=== PATIENT | male | born 1940 | race American Indian/Alaskan Native ===

== ENCOUNTER 2018-02-09 17:52 | Emergency (ER) | payer SELFPAY ==
[2018-02-09] MEDS ORDERED: MAGNESIUM SULFATE 2GM/50ML 2 GM/50 ML BAG IV ONE (18:06)
--- NOTE | 2018-02-09 18:52 | Emergency Department Report ---
HPI - General Time Seen by Provider: 02/09/18 18:06 - HPI HPI: 78-year-old -[place] male presents to the emergency department via EMS from home as a call for a cardiac arrest. Originally they were called for possible stroke or a "sick call" but when EMS got there the patient was unresponsive, not breathing and found to be pulseless. They were unable to intubate the patient but started ACLS protocol including chest compressions and he received 2 rounds of epinephrine and one of sodium bicarbonate. EMS says that the patient was asystolic the entire time. The only history we know is that the patient has history of previous TIAs. Obviously the patient is a poor historian secondary to his acute medical condition. Patient's son later was in the hospital and says that he has a history of previous stroke, diabetes, hypertension. The patient became unresponsive when physical therapy was there who allegedly started CPR prior to EMS arrival. ED Review of Systems ROS: Stated complaint: CARDIAC ARREST Other details as noted in HPI Comment: Unobtainable due to pts medical conditions Physical Exam - Physical Exam Physical Exam: GENERAL: Patient is ill-appearing and unresponsive. HENT: Normocephalic. Atraumatic. Patient has moist mucous membranes. EYES: Pupils are fixed and dilated. NECK: Supple. Trachea appears midline. CHEST/LUNGS: There are no spontaneous respirations. HEART/CARDIOVASCULAR: There are no spontaneous heart sounds. ABDOMEN: Abdomen is soft. There is no abdominal distention. SKIN: Skin is cool but dry. NEURO: Unresponsive. Does not withdraw to painful stimuli. Does not follow any commands. MUSCULOSKELETAL: There is no obvious deformity. There is no evidence of acute injury. No palpable femoral or radial pulses. - Intubation Time Out Performed: No Sedative: none Laryngoscope: [place] Size: 4 Assist Device Used: Bougie ET Tube Size: 8 Tube Secured Depth (cm): 25 Tube Secured Location: lips Tube Placement Confirmation: visualized tube passing t, equal breath sounds bilat, confirmation by capnometr Intubation Complications: difficult intubation ED Medical Decision Making - Medical Decision Making The patient presented in cardiac arrest receiving bag valve ventilation. Patient arrived originally around 1744 after being down for about 20 minutes. He was intubated by myself per the procedure section. He received ACLS protocol including bag valve ventilation along with chest compressions. He had about 12 minutes of ACLS protocol prior to return of spontaneous circulation that included 3 rounds of epinephrine and a 200 J defibrillation for ventricular fibrillation. At this point we started IV fluid resuscitation and were going to place order and obtain labs when the patient went back into ventricular fibrillation and lost his pulse once again. ACLS protocol was restarted with chest compressions and it continued for about 20 minutes including 5 epinephrine, 2 g of magnesium, 4 further defibrillations, 300 mg of amiodarone, and eventually the patient once again regained a pulse at 1822. This pulse was weak and thready and the patient had some hypotension so the dopamine was started, further IV fluid resuscitation but the patient once again appeared to become pulseless. He was given another epinephrine, further chest compressions but after another 3 minutes of ACLS protocol I took the ultrasound bedside and looked at the patient's heart and there was not much movement or squeeze. Time of was called at 1833. The patient's son, Toby, was eventually at the hospital and he provided some further information and he was informed of the patient's expiration. - Differential Diagnosis LA, CVA, PE, dysrhythmia Critical Care Time: Yes Critical care time in (mins) excluding proc time.: 45 Critical care attestation.: If time is entered above; I have spent that time in minutes in the direct care of this critically ill patient, excluding procedure time. Critical care time spent on this patient doing the initial evaluation, supervision of ACLS protocol , discussion with the patient's son. This does not includ the time spent doing the intubation procedure. Critical Care Time: 45 minutes ED Disposition Clinical Impression: Cardiac arrest Respiratory failure Qualifiers: Chronicity: acute Respiratory failure complication: unspecified whether with hypoxia or hypercapnia Qualified Code(s): J96.00 - Acute respiratory failure, unspecified whether with hypoxia or hypercapnia Disposition: DC-20 Is pt being admited?: No Time of Disposition: 21:13
[2018-02-09] MEDS ORDERED: INTROPIN DRIP 800 MG/D5W 250 ML IV ONE (23:00)
[2018-02-09] MEDS ORDERED: CORDARONE IV ONE (23:00)
[2018-02-09] MEDS ORDERED: ADRENALIN ONE (23:00)
== END 2018-02-09 20:48 ==
LOC: ED 17:52
DX: I46.9 Cardiac arrest, cause unspecified (principal); J96.90 Respiratory failure, unspecified, unspecified whether with hypoxia or hypercapnia; E11.9 Type 2 diabetes mellitus without complications; I10 Essential (primary) hypertension
CPT/HCPCS: 31500; 82962; 92950; 99291; J0171; J0282; J1265; J3475